=== PATIENT | female | born 2000 | race Two or more races ===

== ENCOUNTER 2023-03-30 21:05 | Emergency (ER) | payer OTHER, SELFPAY ==
[2023-03-30 21:10] VITALS: BP 116/70; PULSE 86; O2SAT 98
[2023-03-30 21:12] VITALS: BP 104/61; PULSE 82; RESP 20; TEMP 37.2; O2SAT 99; BMI 23.6
[2023-03-30 22:01] LABS: Appearance Urine Clear; Color Urine Yellow; Glucose Urine UA Negative (Negative); Leukocyte Esterase Urine Negative (Negative); Nitrite Urine Negative (Negative); PH 8.5 (5.0-9.0); Urine Blood Negative (Negative); Urine Ketones Negative (Negative); Urine Protein Negative (Neg-Trace)
--- NOTE | 2023-03-30 22:04 | ED.FEMALEGU ---
HPI - Female Genitourinary General Chief complaint: Abdominal Pain Stated complaint: 4 mo preg lower abd pain, per ems Time Seen by Provider: 03/30/23 21:21 Source: patient Mode of arrival: ambulatory Limitations: language barrier History of Present Illness HPI Narrative: Patient Ariel migraine fou4 months was seen at [facility] 02/19 had sonogram showed IUP patient been complaining of diffuse lower abdominal pain for last 1 is dull in character no vaginal bleeding or discharge no nausea or vomiting Related Data Previous Rx's Medication Instructions Recorded acetaminophen 325 mg tablet 650 mg PO Q6H PRN fever or pain 03/30/23 (Tylenol) #30 tabs Allergies Allergy/AdvReac Type Severity Reaction Status Date / Time No Known Allergies Allergy Verified 03/30/23 21:45 Review of Systems Review of Systems: Yes all other systems are reviewed and are negative [facility] Social History Social History Advance Directives: No Advance Directives Information Provided: No Physical Exam Vital Signs: Vital Signs: Last Vital Signs Temp 99.0 F 03/30/23 21:12 Pulse 82 03/30/23 21:12 Resp 20 03/30/23 21:12 BP 104/61 03/30/23 21:12 Pulse Ox 99 03/30/23 21:12 O2 Del Method Room Air 03/30/23 21:12 BMI result Body Mass Index 23.6 Appearance: Alert. Oriented X3. No acute distress. Eyes: PERRLA, No Nystagmus ENT: Pharynx normal. Oral Mucosa moist Neck: Normal inspection. Neck supple. CVS: Normal heart rate and rhythm. Pulses normal. Respiratory: No respiratory distress. Equal air entry bilateral, no wheezing/rales/rhonchi Abdomen: Soft and nontender. Gravid uterus at 143 Bowel sounds are present, , no CVA tenderness Skin: Skin warm and dry. Normal skin color. Normal skin turgor. Extremities: No lower extremity edema. No calf tenderness Neuro: Oriented X 3. No motor deficit. Medications Administered Discontinued Medications Generic Name Dose Route Start Last Admin Trade Name Freq PRN Reason Stop Dose Admin Acetaminophen 650 mg 03/30/23 21:56 03/30/23 22:20 Acetaminophen 325 Mg Tablet PO 03/30/23 21:57 650 mg ONCE ONE Administration Medical Decision Making Medical Decision Making MDM Narrative: Bedside ultrasound done showed IUP heart sound was 143 fetus movements were prepped gallbladder was contracted kidneys were normal patient with mild discomfort of , advised to follow-up with OBG Differential Diagnosis Differential Diagnoses: The differential diagnosis associated with the presentation includes UTI/cholelithiasis/discomfort of Lab Data [facility] Lab Attestation statement: I reviewed the patient's lab results. Labs: Lab Results 03/30/23 Range/Units 21:52 Urine Color Yellow Urine Appearance Clear Urine pH 8.5 (5.0-9.0) Ur Specific [place] 1.010 (1.005-1.025) Urine Protein Negative (Neg-Trace) mg/dL Urine Glucose (UA) Negative (Negative) mg/dL Urine Ketones Negative (Negative) mg/dL Urine Blood Negative (Negative) Urine Nitrite Negative (Negative) Ur Leukocyte Esterase Negative (Negative) Discharge Plan Discharge Clinical Impression: Second trimester Patient Disposition: Home, Self-Care Instructions: at 15 to 18 Weeks (ED) Additional Instructions: Follow-up with OB G Take Tylenol for pain as needed Prescriptions: New acetaminophen [Tylenol] 325 mg tablet 650 mg PO Q6H PRN (Reason: fever or pain) Qty: 30 0RF Referrals: Timmy Mcneal MD [Physician] - 1 week Interventions: ED Discharge Assessment Last Done: 03/30/23 22:30 Discharge Date/Time: 03/30/23 22:50
[2023-03-30] MEDS: Acetaminophen 325 MG TABLET 650 MG PO (22:20)
--- NOTE | 2023-03-30 22:31 | PC.NURSE ---
FHR 143. no bleeding noted. pt has been tolerating PO well. no N/V. gait steady.
== END 2023-03-30 22:50 | disposition home or self-care (01) ==
PROVIDERS: Emergency Provider Internal Medicine
DX: O26.892 Other specified pregnancy related conditions, second trimester (principal); R10.30 Lower abdominal pain, unspecified; Z3A.00 Weeks of gestation of pregnancy not specified
CPT/HCPCS: 81003; 99283

== ENCOUNTER 2024-01-28 13:55 | Emergency (ER) | payer MEDICAID, SELFPAY ==
--- NOTE | ~2024-01-28 | XR_ITS ---
EXAMINATION: XR LUMBOSACRAL SPINE CLINICAL INFORMATION: Right-sided lower back pain. COMPARISON: None available. TECHNIQUE: Three views of the lumbosacral spine. FINDINGS: The vertebral bodies and posterior elements are normal. The disc spaces are preserved and the vertebral alignment is normal. The paraspinal soft tissues are normal. XR/XR lumbar spine 2-3V IMPRESSION: Unremarkable examination.
[2024-01-28 14:27] VITALS: BP 116/66; PULSE 102; RESP 14; TEMP 36.6; O2SAT 97; BMI 27.0
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
[2024-01-28 16:39] LABS: MANUAL DIFF FLAG NO
[2024-01-28 16:59] LABS: Basophils Absolute Auto 0.1 X10*3/uL (0.0-0.2); Basophils Percent Auto 1.2 % (0-2); Eosinophils Absolute Auto 0.1 X10*3/uL (0.0-0.4); Eosinophils Percent Auto 1.5 % (0-4); Hematocrit 40.2 % (37.0-47.0); Imm Gran Abs Auto 0.01 X10*3/uL (0.00-0.03); Imm Gran Pct Auto 0.2 % (0.0-0.4); Lymphocytes Absolute Auto 2.6 X10*3/uL (1.2-4.9); Mean Corpuscular HGB Conc 34.8 g/dl (31.0-35.0); Mean Corpuscular Hemoglobin 30.6 pg (27.0-33.0); Mean Corpuscular Volume 87.8 fL (80.0-98.0); Monocytes Absolute Auto 0.5 X10*3/uL (0.1-1.2); Monocytes Percent Auto 7.7 % (2-11); Neutrophils Absolute Auto 2.7 x10*3/uL (2.0-8.3); Neutrophils Percent Auto 45.4 % (45-73); Platelet Count 233 X10*3/uL (160-400); Red Blood Count 4.58 X10*6/uL (4.20-5.50); Red Cell Distribution Width 12.1 % (11.0-16.0)
[2024-01-28 17:02] LABS: Alanine Aminotransferase 28 U/L (0-31); Albumin Level 4.4 g/dL (3.5-5.0); Alkaline Phosphatase 114 U/L (39-117); Anion Gap 9 (12-20); Aspartate Amino Transferase 15 U/L (5-31); Bilirubin Direct 0.1 mg/dL (0.0-0.5); Bilirubin Total 0.3 mg/dL (0.0-1.0); Blood Urea Nitrogen 10 mg/dL (9-16); Calcium 9.5 mg/dL (8.4-10.2); Carbon Dioxide 26 mmol/L (22-29); Chloride 109 mmol/L (96-108); Creatinine Clr Calc Pharmacy 110.1; Estimated Glomerular Filt Rate > 60; Glucose Random 83 mg/dL (60-115); HCG Quantitative < 2 mIU/mL; Lipase 43 U/L (8-78); Potassium 4.4 mmol/L (3.3-5.1); Sodium 140 mmol/L (135-145)
[2024-01-28 18:07] VITALS: BP 117/64; PULSE 90; RESP 18; TEMP 36.6; O2SAT 97
[2024-01-28 20:31] LABS: Appearance Urine Clear; Color Urine Yellow; Glucose Urine UA Negative (Negative); Leukocyte Esterase Urine Negative (Negative); Nitrite Urine Negative (Negative); Specific Gravity - Urine 1.015 (1.005-1.025); Urine Blood Negative (Negative); Urine Ketones Negative (Negative); Urine Protein Negative (Neg-Trace)
[2024-01-28 20:58] VITALS: BP 118/66; PULSE 68; RESP 18; TEMP 36.9; O2SAT 98
== END 2024-01-28 21:00 | disposition home or self-care (01) ==
PROVIDERS: Physician Assistant Medical; Emergency Provider Emergency Medicine
DX: S39.012A Strain of muscle, fascia and tendon of lower back, initial encounter (principal); X58.XXXA Exposure to other specified factors, initial encounter; Y93.89 Activity, other specified; Y92.89 Other specified places as the place of occurrence of the external cause; Y99.9 Unspecified external cause status; M25.569 Pain in unspecified knee; R10.9 Unspecified abdominal pain
CPT/HCPCS: 36415; 72100; 80048; 80076; 81003; 83690; 84702; 85025; 99283